=== PATIENT | female | born 1985 | race Caucasian/White ===

== ENCOUNTER 2020-04-15 12:35 | Emergency (ER) | payer BC ==
[~2020-04-15] VITALS: Ht 175.3 cm; Wt 113.6 kg
[2020-04-15] MEDS ORDERED: ONDANSETRON HCL 4MG/2ML INJ IV ONE (13:45)
[2020-04-15] MEDS ORDERED: KETOROLAC 15MG/ML VIAL IV ONE (13:45)
[2020-04-15] MEDS ORDERED: SODIUM CHLORIDE 0.9% 1,000 ML IV ONE (13:45)
[2020-04-15] MEDS ORDERED: DEXTROSE 50% WATER 50ML SYRINGE IV NR (14:15)
[2020-04-15 16:38] VITALS: BP 108/76
[2020-04-15] MEDS ORDERED: VISCOUS LIDOCAINE 2% 15 ML UDC PO ONE (18:00)
[2020-04-15] MEDS ORDERED: MAGNESIUM/ALUMINUM HYDROXIDE/SIMETHICONE 30ML UDC PO ONE (18:00)
== END 2020-04-15 19:47 | disposition home or self-care (01) ==
LOC: ER 12:35
DX: U07.1 COVID-19 (principal); E11.65 Type 2 diabetes mellitus with hyperglycemia; Z90.49 Acquired absence of other specified parts of digestive tract; R19.7 Diarrhea, unspecified; R05 Cough; R11.2 Nausea with vomiting, unspecified; E86.0 Dehydration
CPT/HCPCS: 81025; 82962; 87635; 96361; 96374; 96375; 99284; C9803; J1885; J2405; J7030